=== PATIENT | male | born 1980 | race Two or more races ===

== ENCOUNTER 2019-04-18 19:10 | Emergency (ER) | payer MEDICAID ==
[2019-04-18] MEDS: CEFTRIAXONE 1 GM INJ IM (21:06)
[2019-04-18] MEDS: DIPHENHYDRAMINE 25 MG CAP PO (21:06)
[2019-04-18] MEDS: DEXAMETHASONE 4 MG TAB PO (21:13)
== END 2019-04-18 22:52 | disposition home or self-care (01) ==
LOC: FTE 22:52
DX: S40.861A Insect bite (nonvenomous) of right upper arm, initial encounter (principal); W57.XXXA Bitten or stung by nonvenomous insect and other nonvenomous arthropods, initial encounter; Y92.9 Unspecified place or not applicable
CPT/HCPCS: 96372; 99284-25